=== PATIENT | female | born 1980 | race Caucasian/White ===

== ENCOUNTER 2020-02-04 11:15 | Emergency (ER) | payer OTHER ==
[~2020-02-04] VITALS: Ht 154.9 cm; Wt 62.6 kg
[2020-02-04 11:57] VITALS: BP 141/86
--- NOTE | 2020-02-04 12:53 | NUR ---
PT IS WHEELED TO CT SCAN VIA [facility].
--- NOTE | 2020-02-04 13:23 | NUR ---
Patient discharged to home in stable condition. Written and verbal after care instructions given. Patient verbalizes understanding of instruction.
== END 2020-02-04 13:23 | disposition home or self-care (01) ==
LOC: ER 11:20
DX: R51.9 Headache, unspecified (principal); R20.0 Anesthesia of skin; R42 Dizziness and giddiness; W22.8XXA Striking against or struck by other objects, initial encounter; Y93.89 Activity, other specified; Y92.89 Other specified places as the place of occurrence of the external cause; Y99.8 Other external cause status
CPT/HCPCS: 70450-TC; 84703-TC

== ENCOUNTER 2024-11-30 04:03 | Emergency (ER) | payer MEDICAID, OTHER ==
[~2024-11-30] VITALS: Ht 154.9 cm; Wt 61.2 kg
[2024-11-30] MEDS ORDERED: KETOROLAC TROMETHAMINE 15 MG/ML VIAL ONE (05:19)
[2024-11-30] MEDS ORDERED: METOCLOPRAMIDE HCL 10 MG/2 ML VIAL ONE (05:19)
[2024-11-30] MEDS ORDERED: ACETAMINOPHEN ES 500 MG TABLET ONE (05:20)
[2024-11-30] MEDS ORDERED: dexaMETHasone SOD PHOSPHATE 1 ML ONE (05:50)
[2024-11-30] MEDS: dexaMETHasone SOD PHOSPHATE 10 MG/ML VIAL IV ONE (05:54)
[2024-11-30] MEDS: IV NS 0.9% 1,000 ML BAG IV ONE (05:54)
[2024-11-30] MEDS: METOCLOPRAMIDE HCL 10 MG/2 ML VIAL IV ONE (05:54)
[2024-11-30] MEDS ORDERED: ACET-2030 PO (05:55)
[2024-11-30] MEDS ORDERED: METO10TA3 PO (05:55)
[2024-11-30] MEDS: KETOROLAC TROMETHAMINE 15 MG/ML VIAL IV ONE (06:21)
[2024-11-30] MEDS: ACETAMINOPHEN ES 500 MG TABLET PO ONE (06:22)
[2024-11-30] MEDS: PROPRANOLOL LA 60 MG CAP.SA.24H PO SCH (06:27)
[2024-11-30 06:33] VITALS: BP 161/98; TEMP 97.8; O2SAT 98
== END 2024-11-30 06:33 | disposition home or self-care (01) ==
LOC: ER 04:19
DX: R51.9 Headache, unspecified (principal); R42 Dizziness and giddiness; H53.8 Other visual disturbances
CPT/HCPCS: 99284; 96374; 96361; 96375; J1885; J1100; J2765; J7030